=== PATIENT | male | born 1965 | race Two or more races ===

== ENCOUNTER 2019-12-14 16:16 | Emergency (ER) | payer OTHER ==
[~2019-12-14] VITALS: Ht 172.7 cm; Wt 99.8 kg
[2019-12-14 20:37] VITALS: BP 146/91
[2019-12-14] MEDS ORDERED: LIDOCAINE 1% HCL (LOCAL ANESTH.) INJ 20ML MDV IJ ONE (21:30)
[2019-12-14] MEDS ORDERED: TETANUS-DIPTH-ACEL PERTUSSIS 0.5ML SYR Tdap IM ONE (21:30)
== END 2019-12-14 22:04 | disposition home or self-care (01) ==
LOC: ER 16:16 → EDBD 16:16 → ER 22:04
DX: S89.92XA Unspecified injury of left lower leg, initial encounter (principal); S22.42XA Multiple fractures of ribs, left side, initial encounter for closed fracture; S81.832A Puncture wound without foreign body, left lower leg, initial encounter; S40.212A Abrasion of left shoulder, initial encounter; V86.56XA Driver of dirt bike or motor/cross bike injured in nontraffic accident, initial encounter; Y93.89 Activity, other specified; Y92.89 Other specified places as the place of occurrence of the external cause; Y99.8 Other external cause status
CPT/HCPCS: 12002; 71101; 73562; 90471; 90715; 99284; J2001